=== PATIENT | male | born 1945 | race Caucasian/White ===

== ENCOUNTER → 2016-10-11 | Outpatient (CLI) | payer MEDICARE | END | disposition home or self-care (01) | LOC: LAB 15:41 | PROVIDERS: ATTEND Internal Medicine | DX: R91.8 Other nonspecific abnormal finding of lung field (principal) | CPT/HCPCS: 36415; 86480 ==

== ENCOUNTER → 2016-11-05 | Outpatient (CLI) | payer MEDICARE | END | disposition home or self-care (01) | LOC: CFH 09:46 | PROVIDERS: ATTEND Internal Medicine | DX: R91.8 Other nonspecific abnormal finding of lung field (principal); J67.9 Hypersensitivity pneumonitis due to unspecified organic dust; M51.34 Other intervertebral disc degeneration, thoracic region; I25.10 Atherosclerotic heart disease of native coronary artery without angina pectoris | CPT/HCPCS: 71250 ==

== ENCOUNTER 2017-02-15 07:31 | Day surgery (SDC) | payer MEDICARE ==
[2017-02-13 14:56] VITALS: BP 147/91
[2017-02-13 15:50] LABS: ASPARTATE AMINO TRANSFERASE 24 U/L (15-37); BLOOD UREA NITROGEN 23 mg/dL (7-18)
[~2017-02-15] VITALS: Ht 172.7 cm; Wt 79.3 kg
[~2017-02-15 07:31] MED LIST: AMLO2.5T PO; ASPI-496 PO; EZET10TA18 PO; LOSA100T6 PO
[2017-02-15 08:16] VITALS: BP 147/91
[2017-02-15] MEDS ORDERED: LACTATED RINGERS 1,000 ML IV SCH (08:34)
[2017-02-15] MEDS ORDERED: FENTANYL PF 100 MCG/2ML ONE ×3 (09:45)
[2017-02-15] MEDS ORDERED: MIDAZOLAM 1 MG/ML, 2ML ONE ×3 (09:45→09:59)
[2017-02-15] MEDS ORDERED: SUFentanil 50 MCG/ML, 1ML ONE (09:58)
[2017-02-15] MEDS ORDERED: ROCURONIUM 10 MG/ML ONE (10:00)
[2017-02-15] MEDS ORDERED: PROPOFOL 10 MG/ML, 20ML ONE (10:00)
[2017-02-15] MEDS ORDERED: ONDANSETRON 2MG/ML, 2ML ONE ×2 (11:46)
[2017-02-15] MEDS ORDERED: ALBUTEROL SULFATE 2.5 MG/3 ML ONE (13:03)
== END 2017-02-15 14:30 ==
LOC: OUT 07:31
PROVIDERS: ATTEND Internal Medicine
DX: J98.4 Other disorders of lung (principal)
CPT/HCPCS: 31623; 31624; 31625; 31627; 36415; 71010; 76001; 80053; 82962; 88112; 88172; 88173; 88305; 93005; 94640; J2250; J2405; J2704; J7120; J3010

== ENCOUNTER → 2017-03-21 | Outpatient (CLI) | payer MEDICARE | END | disposition home or self-care (01) | LOC: PETCFH 11:52 | PROVIDERS: ATTEND Internal Medicine | DX: K57.30 Diverticulosis of large intestine without perforation or abscess without bleeding (principal); R91.8 Other nonspecific abnormal finding of lung field; M47.892 Other spondylosis, cervical region | CPT/HCPCS: 78815; A9552 ==